=== PATIENT | male | born 1950 | race Caucasian/White ===

== ENCOUNTER → 2016-03-12 | Outpatient (CLI) | payer MEDICARE ==
--- NOTE | 2016-03-12 18:30 | PN ---
DATE OF SERVICE: 03/12/2016 A 66-year-old gentleman who [facility] of obstructive sleep apnea/hypopnea syndrome. Patient is able to use his equipment every night. Sometimes feels that it is not enough heat in the air. I checked his CPAP unit. CPAP pressure is 7 cm of water. Patient shows usage of equipment 30 out of 30 nights for more than 4 hours. Average usage more than several hours per night. Reading from the machine is about 1 for apnea-hypopnea index. Humidifier at the range of 2. I showed the patient how to adjust heat in the humidifier. MEDICATIONS: Benicar, Protonix, Zocor. During physical exam, the patient is in no distress. BP 162/80, HR 86, RR 16. Height 5 foot 5. Weight 208. BMI 34.6. Temperature 97.9. Oxygen saturation at room air 94%. HEENT: [place]. LUNGS: Clear. HEART: S1, S2 regular. ABDOMEN: Obese, soft, nontender. EXTREMITIES: Minimal, up to 1+ ankle edema. IMPRESSION: 1. Obstructive sleep apnea-hypopnea syndrome. Patient demonstrated 100% compliance with treatment. Benefiting from treatment. 2. Obesity. 3. Acid reflux. 4. Hypertension. 5. Hyperlipidemia. PLAN: 1. I reviewed results of previous test. Looked at patient's weight and believe we should slightly increase pressure. I adjusted pressure to 9 cm of water. 2. Patient will continue to use equipment every night. He will adjust humidifier to the level of 4. 3. Losing weight. 4. Prescription for all necessary CPAP supplies including nasal pillow mask, patient is using Baugh FX with white filter for allergies, tube. 5. Sleep hygiene with regular time in bed for at least 8 hours. 6. No driving if feeling any sleepiness. 7. Follow-up visit in one year or earlier if patient has any problems. Thank you very much for allowing me to participate in the management of your patient.
== END | disposition home or self-care (01) ==
LOC: SLEEP 13:18
PROVIDERS: ATTEND Internal Medicine
DX: G47.33 Obstructive sleep apnea (adult) (pediatric) (principal); E66.9 Obesity, unspecified; K21.9 Gastro-esophageal reflux disease without esophagitis; I10 Essential (primary) hypertension; E78.5 Hyperlipidemia, unspecified; Z79.899 Other long term (current) drug therapy

== ENCOUNTER → 2016-07-02 | Outpatient (CLI) | payer MEDICARE ==
--- NOTE | 2016-07-02 15:59 | US ---
EXAMINATION TYPE: US duplex aorta DATE OF EXAM: 07/02/2016 8:46 AM COMPARISON: NONE CLINICAL HISTORY: Z13.9 SCREENING FOR DISORDER. EXAM MEASUREMENTS: Abdominal Aorta: Proximal: 2.3 x 2.5 cm Mid: 2.0 x 2.2 cm Distal: 1.6 x 2.1 cm Bifurcation: right - 1.6 x 1.0 cm left - 1.7 x 1.0 cm Suboptimal visualization due to overlying bowel gas IMPRESSION: No evidence for abdominal aortic aneurysm.
== END | disposition home or self-care (01) ==
LOC: RADUSWWP 08:10
PROVIDERS: ATTEND Family Medicine
DX: Z13.9 Encounter for screening, unspecified (principal); Z88.0 Allergy status to penicillin; Z88.3 Allergy status to other anti-infective agents
CPT/HCPCS: 93979

== ENCOUNTER → 2022-08-14 | Outpatient (CLI) | payer MEDICARE ==
[2022-08-14 21:05] LABS: BUN/Creat Ratio 19.27 Ratio (12.00-20.00); Blood Urea Nitrogen 21.2 mg/dL (9.0-27.0); Chloride 97 mmol/L (96-109); Chol/HDL Ratio 3.08 Ratio; Glucose 104 mg/dL (70-110); LDL Cholesterol,Calculated 49.1 mg/dL (0.0-131.0); Potassium 4.3 mmol/L (3.5-5.5); Sodium 137 mmol/L (135-145)
[2022-08-14 21:06] LABS: ALT 43 U/L (10-49); AST 22 U/L (14-35); Alkaline Phosphatase 50 U/L (41-126); Calcium 10.8 mg/dL (8.7-10.3); Carbon Dioxide 26.5 mmol/L (21.6-31.8); Globulin 2.5 d/dL (1.6-3.3); T4, Free (Free Thyroxine) 1.36 ng/dL (0.80-1.80); Total Bilirubin 0.3 mg/dL (0.3-1.2); Total Protein 7.5 d/dL (6.2-8.2)
[2022-08-14 21:45] LABS: Basophils # (A) 0.04 X 10*3/uL (0.00-0.10); Basophils % (A) 0.6 %; Eosinophils # (A) 0.15 X 10*3/uL (0.04-0.35); Eosinophils % (A) 2.1 %; HCT 48.1 % (39.6-50.0); HGB 15.3 d/dL (12.0-15.0); Lymphocytes # (A) 1.55 X 10*3/uL (0.90-5.00); Lymphocytes % (A) 21.5 %; MCH 28.8 pg (27.0-32.0); MCHC 31.8 d/dL (32.0-37.0); MCV 90.4 FL (80.0-97.0); Mean Platelet Volume 12.2 FL (9.5-12.2); Monocytes # (A) 0.41 X 10*3/uL (0.20-1.00); Monocytes % (A) 5.7 %; NRBC Per 100 WBC 0 X 10*3/uL (0.00-0.01); Neutrophils # (A) 5.03 X 10*3/uL (1.80-7.70); Neutrophils % (A) 69.5 %; Platelet Count 225 X 10*3/uL (140-440); RBC 5.32 X 10*6/uL (4.40-5.60); RDW 14.6 % (11.5-14.5); WBC 7.22 X 10*3/uL (4.50-10.00)
[2022-08-14 22:08] LABS: Microalbumin Creatinine Ratio <45 mg/g Cr (0-30); Urine Creatinine 26.8 mg/dL (39.0-259.0)
== END | disposition home or self-care (01) ==
LOC: LABWHC1 11:39
PROVIDERS: ATTEND Family Medicine
DX: Z12.5 Encounter for screening for malignant neoplasm of prostate (principal); E11.9 Type 2 diabetes mellitus without complications
CPT/HCPCS: 36415; 80053; 80061; 82043; 82570; 83036; 84153; 84439; 84443; 85025

== ENCOUNTER → 2022-09-15 | Outpatient (CLI) | payer MEDICARE | LOC: CPPFTMAIN 12:50 | PROVIDERS: ATTEND Family Medicine | DX: J44.9 Chronic obstructive pulmonary disease, unspecified (principal); Z88.0 Allergy status to penicillin; Z91.040 Latex allergy status; Z87.891 Personal history of nicotine dependence | CPT/HCPCS: 94060; 94726; 94729 ==